=== PATIENT | female | born 1975 | race African-American/Black ===

== ENCOUNTER 2023-01-24 14:45 | Inpatient (IN) | payer MEDICARE, MEDICAID ==
[~2023-01-24] VITALS: Ht 170.2 cm; Wt 139.7 kg
[2023-01-24] MEDS ORDERED: DILTIAZEM HCL 5MG/ML 5ML VIAL IV PRN (15:15)
[2023-01-24] MEDS ORDERED: SODIUM CHLORIDE 0.9% 500 ML IV ONE (15:15)
[2023-01-24 15:44] LABS: BASOPHILS % 0.7 % (0.0-2.0); EOSINOPHILS % 0.4 % (0.0-5.0); LYMPHOCYTES % 25.4 % (20.0-50.0); MEAN CORPUSCULAR HEMOGLOBIN 21.9 pg (28.0-32.0); MEAN CORPUSCULAR VOLUME 73.4 fL (81.0-99.0); MEAN PLATELET VOLUME 8.2 fl (7.4-10.4); MONOCYTES % 11.2 % (2.0-8.0); NEUTROPHILS % 62.3 % (40.0-76.0); PLATELET 435 x1000/uL (130-400); RED BLOOD CELL COUNT 2.24 mill/uL (4.2-5.4); RED CELL DISTRIBUTION WIDTH 19.9 % (11.6-14.6)
[2023-01-24 15:45] LABS: CHLORIDE 106 mEq/L (98-107)
[2023-01-24 15:50] LABS: HEMATOCRIT. 16.5 % (36.0-48.0); HEMOGLOBIN. 4.9 g/dL (12.0-16.0)
[2023-01-24 16:25] LABS: HCG SCREEN NEGATIVE
[2023-01-24] MEDS ORDERED: SODIUM CHLORIDE 0.9% 1,000 ML IV ONE (19:45)
[2023-01-24] MEDS ORDERED: MAGNESIUM/ALUMINUM HYDROXIDE/SIMETHICONE 30ML UDC PO PRN (20:00)
[2023-01-24] MEDS ORDERED: ACETAMINOPHEN 325MG TABLET PO PRN (20:00)
[2023-01-24] MEDS ORDERED: CLONIDINE 0.1MG TABLET PO PRN (20:00)
[2023-01-24] MEDS ORDERED: LORAZEPAM 2MG/ML CPJ IV PRN (20:00)
[2023-01-24] MEDS ORDERED: DOCUSATE SODIUM 100MG CAPSULE PO PRN (20:00)
[2023-01-24] MEDS ORDERED: IPRATROPIUM/ALBUTEROL 0.5-3(2.5)MG/3ML NEB NEB PRN (20:00)
[2023-01-24] MEDS ORDERED: ONDANSETRON HCL 4MG/2ML INJ IV PRN (20:00)
[2023-01-24 20:44] VITALS: BP 124/65; PULSE 137; RESP 20; TEMP 98.6
[2023-01-24 20:53] LABS: D-DIMER 0.33 mg/L FEU (<0.50); INR 1.1; PROTHROMBIN TIME 11.9 sec (9.6-11.0)
[2023-01-24 20:57] VITALS: BP 124/65; PULSE 140; RESP 24; TEMP 98.6
[2023-01-24 21:13] LABS: VITAMIN B12 SERUM 1374 pg/mL (211-911)
[2023-01-24 21:20] LABS: FOLIC ACID (FOLATE) SERUM > 20.00 ng/mL (>5.38)
[2023-01-24 21:22] LABS: FERRITIN < 5 ng/mL (10-291)
[2023-01-24] MEDS ORDERED: AZITHROMYCIN 500 MG in DEXT 5% WATER 250 ML IV SCH (22:00)
[2023-01-24] MEDS: DILTIAZEM HCL 30MG TABLET PO SCH (22:40)
[2023-01-24 23:02] LABS: CLARITY URINE CLEAR (CLEAR); COLOR URINE YELLOW (YELLOW); KETONES URINE NEGATIVE (NEGATIVE); LEUKOCYTE ESTERASE URINE NEGATIVE (NEGATIVE); NITRITE URINE NEGATIVE (NEGATIVE); OCCULT BLOOD URINE 2+ (NEGATIVE); PH URINE 6.5 (4.5-8.0); PROTEIN URINE NEGATIVE (NEGATIVE); SPECIFIC GRAVITY URINE 1.006 (1.005-1.030); UROBILINOGEN URINE 0.2 E.U./dL (0.2-1.0)
[2023-01-24 23:14] LABS: *AMPHETAMINES SCREEN URINE NEGATIVE (NEGATIVE); *BARBITURATES SCREEN URINE NEGATIVE (NEGATIVE); *BENZODIAZEPINES SCREEN URINE NEGATIVE (NEGATIVE); *COCAINE SCREEN URINE NEGATIVE (NEGATIVE); CANNABINOID URINE SCREEN NEGATIVE (NEGATIVE); METHADONE URINE SCREEN NEGATIVE (NEGATIVE); OPIATES URINE SCREEN NEGATIVE (NEGATIVE); PHENCYCLIDINE URINE SCREEN NEGATIVE (NEGATIVE)
[2023-01-24] MEDS: SODIUM CHLORIDE 0.9% 1,000 ML IV SCH (23:44)
[2023-01-24 23:57] VITALS: BP 101/67; PULSE 140; RESP 20; TEMP 98.4
[2023-01-25] VITALS (17 sets, daily range): BP systolic 95–160; BP diastolic 50–95; PULSE 108–177; RESP 16–25; TEMP 97.5–99.6
[2023-01-25] MEDS: ACETAMINOPHEN 325MG TABLET PO PRN ×3 (00:31→18:56)
[2023-01-25 00:59] LABS: CREATINE KINASE MB FRACTION 2.4 ng/mL (0.5-3.6)
[2023-01-25 01:45] LABS: BASOPHILS % 0.9 % (0.0-2.0); EOSINOPHILS % 0.4 % (0.0-5.0); LYMPHOCYTES % 26.1 % (20.0-50.0); MEAN CORPUSCULAR HEMOGLOBIN 23.4 pg (28.0-32.0); MEAN PLATELET VOLUME 8.6 fl (7.4-10.4); MONOCYTES % 9.5 % (2.0-8.0); NEUTROPHILS % 63.1 % (40.0-76.0); PLATELET 375 x1000/uL (130-400); RED BLOOD CELL COUNT 2.59 mill/uL (4.2-5.4); RED CELL DISTRIBUTION WIDTH 22.3 % (11.6-14.6)
[2023-01-25 01:51] LABS: HEMOGLOBIN. 6.1 g/dL (12.0-16.0)
[2023-01-25 01:52] LABS: HEMATOCRIT. 19.9 % (36.0-48.0)
[2023-01-25] MEDS: DILTIAZEM HCL 30MG TABLET PO SCH ×3 (06:00→21:23)
[2023-01-25] MEDS: PANTOPRAZOLE SODIUM 40 MG/VIAL IV SCH (08:53)
[2023-01-25] MEDS: SODIUM CHLORIDE 0.9% 1,000 ML IV SCH ×2 (08:54→22:55)
[2023-01-25] MEDS: GUAIFENESIN 200MG/10ML SUGAR FREE UDC PO PRN ×2 (09:04→18:56)
[2023-01-25] MEDS ORDERED: XAR15 PO (09:17)
[2023-01-25] MEDS ORDERED: PREG200C28 PO (09:18)
[2023-01-25] MEDS ORDERED: DILT30TA37 PO (09:19)
[2023-01-25] MEDS ORDERED: METO100T16 PO (09:20)
[2023-01-25 09:25] LABS: BASOPHILS % 0.7 % (0.0-2.0); CHLORIDE 113 mEq/L (98-107); EOSINOPHILS % 0.8 % (0.0-5.0); LYMPHOCYTES % 27.9 % (20.0-50.0); MEAN CORPUSCULAR HEMOGLOBIN 24.2 pg (28.0-32.0); MEAN PLATELET VOLUME 8.2 fl (7.4-10.4); NEUTROPHILS % 64.6 % (40.0-76.0); PLATELET 360 x1000/uL (130-400); RED BLOOD CELL COUNT 2.76 mill/uL (4.2-5.4); RED CELL DISTRIBUTION WIDTH 21.7 % (11.6-14.6)
[2023-01-25 09:41] LABS: CREATINE KINASE 271 IU/L (26-192); CREATINE KINASE MB FRACTION 2.2 ng/mL (0.5-3.6); HDL CHOLESTEROL 42 mg/dL (40-59); LDL CHOLESTEROL 44 mg/dL (5-100); T4 FREE 1.32 ng/dL (0.76-1.46)
[2023-01-25 09:42] LABS: HEMATOCRIT. 21.3 % (36.0-48.0); HEMOGLOBIN. 6.7 g/dL (12.0-16.0)
[2023-01-25] MEDS ORDERED: SODIUM CHLORIDE 0.9% 100 ML IV ONE (10:15)
[2023-01-25] MEDS ORDERED: SODIUM CHLORIDE 0.9% 500 ML IV ONE ×2 (10:45→11:30)
[2023-01-25] MEDS: IRON SUCROSE COMPLEX 100 MG/5 ML ML IV SCH (11:10)
[2023-01-25 17:59] LABS: BASOPHILS % 0.9 % (0.0-2.0); EOSINOPHILS % 0.7 % (0.0-5.0); HEMATOCRIT. 25.6 % (36.0-48.0); HEMOGLOBIN. 8.2 g/dL (12.0-16.0); MEAN CORPUSCULAR HEMOGLOBIN 25.4 pg (28.0-32.0); MEAN CORPUSCULAR VOLUME 79.2 fL (81.0-99.0); MEAN PLATELET VOLUME 8.5 fl (7.4-10.4); NEUTROPHILS % 65.4 % (40.0-76.0); PLATELET 357 x1000/uL (130-400); RED BLOOD CELL COUNT 3.24 mill/uL (4.2-5.4)
[2023-01-25 18:03] LABS: INR 1.1; PROTHROMBIN TIME 11.7 sec (9.6-11.0)
[2023-01-25] MEDS: AZITHROMYCIN 500 MG in DEXT 5% WATER 250 ML IV SCH ×2 (21:24→21:30)
[2023-01-25 22:50] LABS: PLATELET ESTIMATE NORMAL
[2023-01-25] MEDS: AZITHROMYCIN 500 MG TABLET PO SCH (23:14)
[2023-01-26] VITALS (8 sets, daily range): BP systolic 111–148; BP diastolic 37–88; PULSE 114–142; RESP 14–32; TEMP 98–98.8
[2023-01-26] MEDS: DILTIAZEM HCL 30MG TABLET PO SCH (05:21)
[2023-01-26] MEDS: ACETAMINOPHEN 325MG TABLET PO PRN ×2 (05:23→14:07)
[2023-01-26] MEDS: PANTOPRAZOLE SODIUM 40 MG/VIAL IV SCH (09:00)
[2023-01-26] MEDS ORDERED: LIDOCAINE HCL 1% 10 MG/ML 10ML VIAL ONE (09:46)
[2023-01-26] MEDS ORDERED: METOPROLOL TARTRATE 5MG/5ML VIAL IV PRN (11:30)
[2023-01-26] MEDS ORDERED: DIGOXIN 500MCG/2ML AMP IV SCH (12:00)
[2023-01-26] MEDS: SODIUM CHLORIDE 0.9% 1,000 ML IV SCH (12:16)
[2023-01-26] MEDS: IRON SUCROSE COMPLEX 100 MG/5 ML ML IV SCH (12:16)
[2023-01-26] MEDS: METOPROLOL TARTRATE 50MG TABLET PO SCH ×2 (12:17→21:37)
[2023-01-26 12:48] LABS: BASOPHILS % 0.7 % (0.0-2.0); EOSINOPHILS % 1.4 % (0.0-5.0); LYMPHOCYTES % 25.8 % (20.0-50.0); MEAN CORPUSCULAR HEMOGLOBIN 25.1 pg (28.0-32.0); MEAN CORPUSCULAR VOLUME 78.9 fL (81.0-99.0); MEAN PLATELET VOLUME 8.4 fl (7.4-10.4); MONOCYTES % 7.6 % (2.0-8.0); NEUTROPHILS % 64.5 % (40.0-76.0); PLATELET 331 x1000/uL (130-400); RED BLOOD CELL COUNT 3.17 mill/uL (4.2-5.4); RED CELL DISTRIBUTION WIDTH 21.9 % (11.6-14.6)
[2023-01-26] MEDS: LACTULOSE 20G/30ML UDC PO SCH ×2 (14:07→21:38)
[2023-01-26] MEDS: DIGOXIN 500MCG/2ML AMP IV SCH (17:31)
[2023-01-26] MEDS: AZITHROMYCIN 500 MG TABLET PO SCH (21:37)
[2023-01-27] VITALS (7 sets, daily range): BP systolic 101–125; BP diastolic 56–74; PULSE 92–134; RESP 12–26; TEMP 98.2–98.9
[2023-01-27] MEDS: SODIUM CHLORIDE 0.9% 1,000 ML IV SCH ×2 (01:35→14:55)
[2023-01-27] MEDS: ACETAMINOPHEN 325MG TABLET PO PRN ×2 (03:29→08:47)
[2023-01-27] MEDS: LACTULOSE 20G/30ML UDC PO SCH ×3 (06:00→21:02)
[2023-01-27 06:51] LABS: BASOPHILS % 0.6 % (0.0-2.0); EOSINOPHILS % 1.2 % (0.0-5.0); HEMATOCRIT. 24.2 % (36.0-48.0); HEMOGLOBIN. 7.6 g/dL (12.0-16.0); LYMPHOCYTES % 25.9 % (20.0-50.0); MEAN CORPUSCULAR HEMOGLOBIN 25.2 pg (28.0-32.0); MEAN CORPUSCULAR VOLUME 80.1 fL (81.0-99.0); MEAN PLATELET VOLUME 8.2 fl (7.4-10.4); MONOCYTES % 7.3 % (2.0-8.0); PLATELET 306 x1000/uL (130-400); RED BLOOD CELL COUNT 3.02 mill/uL (4.2-5.4); RED CELL DISTRIBUTION WIDTH 22.5 % (11.6-14.6)
[2023-01-27] MEDS: PANTOPRAZOLE SODIUM 40 MG/VIAL IV SCH (08:47)
[2023-01-27] MEDS: METOPROLOL TARTRATE 50MG TABLET PO SCH (09:15)
[2023-01-27] MEDS: IRON SUCROSE COMPLEX 100 MG/5 ML ML IV SCH (11:01)
[2023-01-27] MEDS: METOPROLOL TARTRATE 25MG TABLET PO SCH ×2 (12:00→20:49)
[2023-01-27] MEDS: GUAIFENESIN 200MG/10ML SUGAR FREE UDC PO PRN ×2 (13:49→18:13)
[2023-01-27] MEDS: DIGOXIN 500MCG/2ML AMP IV SCH (18:02)
[2023-01-27] MEDS: AZITHROMYCIN 500 MG TABLET PO SCH (21:02)
[2023-01-28] VITALS (8 sets, daily range): BP systolic 101–133; BP diastolic 63–88; PULSE 101–145; RESP 15–26; TEMP 97.9–98.8
[2023-01-28] MEDS: SODIUM CHLORIDE 0.9% 1,000 ML IV SCH ×2 (04:35→17:35)
[2023-01-28] MEDS: LACTULOSE 20G/30ML UDC PO SCH ×3 (05:06→22:00)
[2023-01-28] MEDS: ACETAMINOPHEN 325MG TABLET PO PRN (06:39)
[2023-01-28] MEDS: METOPROLOL TARTRATE 25MG TABLET PO SCH ×2 (09:00→23:00)
[2023-01-28] MEDS ORDERED: DIGOXIN 500MCG/2ML AMP IV SCH (10:00)
[2023-01-28 11:59] LABS: HEMATOCRIT 25.7 % (36.0-48.0); MEAN CORPUSCULAR HEMOGLOBIN 25.8 pg (28.0-32.0); PLATELET 306 x1000/uL (130-400); RED CELL DISTRIBUTION WIDTH 22.9 % (11.6-14.6)
[2023-01-28] MEDS: PANTOPRAZOLE SODIUM 40 MG/VIAL IV SCH (12:38)
[2023-01-28] MEDS: DIGOXIN 500MCG/2ML AMP IV SCH (18:55)
[2023-01-28] MEDS: AZITHROMYCIN 500 MG TABLET PO SCH (23:10)
[2023-01-28] MEDS: BUTALBITAL/ACETAMINOPHEN/CAFFEINE 50/325/40MG TABLET PO PRN (23:25)
[2023-01-29 00:59] VITALS: BP 117/66; PULSE 103; RESP 17; TEMP 98.5
[2023-01-29 04:50] VITALS: BP 113/71; PULSE 111; RESP 13; TEMP 97.8
[2023-01-29] MEDS: LACTULOSE 20G/30ML UDC PO SCH ×3 (05:30→21:09)
[2023-01-29] MEDS: SODIUM CHLORIDE 0.9% 1,000 ML IV SCH ×2 (06:36→21:08)
[2023-01-29 08:00] VITALS: BP 119/65; PULSE 101; RESP 22; TEMP 98
[2023-01-29] MEDS: METOPROLOL TARTRATE 100MG TABLET PO SCH ×2 (09:05→21:07)
[2023-01-29] MEDS: PANTOPRAZOLE SODIUM 40 MG/VIAL IV SCH (09:05)
[2023-01-29] MEDS: BUTALBITAL/ACETAMINOPHEN/CAFFEINE 50/325/40MG TABLET PO PRN ×2 (09:10→21:07)
[2023-01-29] MEDS: GUAIFENESIN 200MG/10ML SUGAR FREE UDC PO PRN (09:10)
[2023-01-29] MEDS ORDERED: AMIODARONE HCL 50MG/ML 3ML VIAL IV ONE (09:45)
[2023-01-29] MEDS ORDERED: AMIODARONE HCL 900 MG in DEXT 5% WATER 482 ML IV PRN (09:45)
[2023-01-29 10:23] LABS: BASOPHILS % 0.6 % (0.0-2.0); EOSINOPHILS % 1.6 % (0.0-5.0); HEMATOCRIT. 26.6 % (36.0-48.0); HEMOGLOBIN. 8.4 g/dL (12.0-16.0); LYMPHOCYTES % 22.9 % (20.0-50.0); MEAN CORPUSCULAR HEMOGLOBIN 26.3 pg (28.0-32.0); MEAN CORPUSCULAR VOLUME 83.3 fL (81.0-99.0); MEAN PLATELET VOLUME 8.3 fl (7.4-10.4); MONOCYTES % 4.8 % (2.0-8.0); NEUTROPHILS % 70.1 % (40.0-76.0); PLATELET 269 x1000/uL (130-400); RED CELL DISTRIBUTION WIDTH 23.3 % (11.6-14.6)
[2023-01-29] MEDS ORDERED: AMIODARONE HCL 150 MG in DEXT 5% WATER 100 ML IV NR (10:30)
[2023-01-29 12:00] VITALS: BP 126/71; PULSE 91; RESP 18; TEMP 98.1
[2023-01-29 16:00] VITALS: BP 108/77; PULSE 90; RESP 14; TEMP 97.8
[2023-01-29] MEDS: DIGOXIN 500MCG/2ML AMP IV SCH (18:08)
[2023-01-29 20:00] VITALS: BP 133/74; PULSE 97; RESP 13; TEMP 98.6
[2023-01-29] MEDS: AZITHROMYCIN 500 MG TABLET PO SCH (21:00)
[2023-01-30] VITALS: BP 99/58; PULSE 97; RESP 20; TEMP 98.7
[2023-01-30 03:47] VITALS: BP 93/70; PULSE 99; RESP 22; TEMP 98.6
[2023-01-30 08:00] VITALS: BP 129/92; PULSE 99; RESP 14; TEMP 98.5
[2023-01-30] MEDS: PANTOPRAZOLE SODIUM 40 MG/VIAL IV SCH (08:24)
[2023-01-30] MEDS: METOPROLOL TARTRATE 100MG TABLET PO SCH (08:26)
[2023-01-30] MEDS: BUTALBITAL/ACETAMINOPHEN/CAFFEINE 50/325/40MG TABLET PO PRN (08:26)
[2023-01-30] MEDS: SODIUM CHLORIDE 0.9% 1,000 ML IV SCH (09:40)
[2023-01-30] MEDS ORDERED: SENN-257 MT (10:56)
[2023-01-30] MEDS ORDERED: DIGO125T80 MT (10:56)
[2023-01-30] MEDS ORDERED: FERR324T4 MT (10:56)
[2023-01-30] MEDS ORDERED: METO100T16 PO (10:56)
[2023-01-30 11:56] VITALS: BP 129/92; PULSE 94; TEMP 98.5; O2SAT 100
[2023-01-30 12:00] VITALS: BP 123/71; PULSE 102; RESP 15; TEMP 98.6
== END 2023-01-30 14:00 | disposition home health service (06) | DRG 811 ==
LOC: ER 14:45 → EDBEDREQTM 16:59 → EDBEDREQ 16:59 → 3WST 21:42
PROVIDERS: ADMIT Internal Medicine; ATTEND Internal Medicine
PROC: 30233N1 Transfusion of Nonautologous Red Blood Cells into Peripheral Vein, Percutaneous Approach (ICD-10-PCS; principal; 2023-01-24)
PROC: 02HV33Z Insertion of Infusion Device into Superior Vena Cava, Percutaneous Approach (ICD-10-PCS; 2023-01-26)
PROC: B548ZZA Ultrasonography of Superior Vena Cava, Guidance (ICD-10-PCS; 2023-01-26)
DX: D62 Acute posthemorrhagic anemia (principal); I50.43 Acute on chronic combined systolic (congestive) and diastolic (congestive) heart failure; J96.00 Acute respiratory failure, unspecified whether with hypoxia or hypercapnia; I48.19 Other persistent atrial fibrillation; E44.1 Mild protein-calorie malnutrition; E87.1 Hypo-osmolality and hyponatremia; D25.9 Leiomyoma of uterus, unspecified; D75.839 Thrombocytosis, unspecified; E66.9 Obesity, unspecified; I27.20 Pulmonary hypertension, unspecified; I08.1 Rheumatic disorders of both mitral and tricuspid valves; D50.9 Iron deficiency anemia, unspecified; Z87.891 Personal history of nicotine dependence; Z90.49 Acquired absence of other specified parts of digestive tract; Z91.199 Patient's noncompliance with other medical treatment and regimen due to unspecified reason
CPT/HCPCS: 36415; 36573; 71045; 76830; 76856; 80053; 80061; 80162; 80305; 81003; 82270; 82550; 82553; 82607; 82728; 82746; 83036; 83540; 83550; 83735; 83880; 84100; 84439; 84443; 84481; 84484; 84703; 85025; 85027; 85379; 85384; 86850; 86900; 86920; 93005; 93306; 93880; 93971; 99285; C1725; C9113; J0282; J0456; J1160; J3490; J7030; J7040; J7060; P9016

== ENCOUNTER → 2023-10-23 | Outpatient (CLI) | payer MEDICARE, MEDICAID ==
[~2023-10-23] MED LIST: AMIO400T11 PO; APIX5TAB PO; FERR324T4 MT; FURO40TA5 PO; PREG200C29 PO; REGADENOSON 0.4 MG/5 ML IV ONE; SENN-257 MT; SPIR25TA6 PO
== END | disposition home or self-care (01) ==
LOC: NM 10:26
PROVIDERS: ATTEND Internal Medicine
DX: Z01.818 Encounter for other preprocedural examination (principal); I48.19 Other persistent atrial fibrillation; I50.9 Heart failure, unspecified; R07.9 Chest pain, unspecified
CPT/HCPCS: 78452; 93017; J2785; A9500